=== PATIENT | female | born 1985 | race Caucasian/White ===

== ENCOUNTER 2016-10-24 01:21 | Emergency (ER) | payer OTHER ==
[~2016-10-24 01:21] MED LIST: IBUP-1542 PO
[2016-10-24] MEDS ORDERED: KETOROLAC 30 MG INJ ONE (03:16)
[2016-10-24] MEDS ORDERED: ONDANSETRON (ODT) 4 MG TAB ODT ONE (03:16)
[2016-10-24] MEDS ORDERED: HYDROCODONE/APAP (5/325) TAB ONE (03:17)
--- NOTE | 2016-10-26 19:12 | ERD ---
ER Documentation Chief Complaint Date/Time DATE: 10/26/16 TIME: 19:08 Chief Complaint HPI This patient is a 31-year-old female presenting to the emergency department with complaints of migraine which began today. Symptoms are constant. She does have history of migraines. Tylenol relieved symptoms temporarily. She states she gets approximately one migraine per week which is associated with nausea. She denies urinary symptoms, her last reported menstrual cycle was yesterday. She denies syncope, dizziness, chest pain, visual changes, or other symptoms currently. ROS All systems reviewed and are negative except as per history of present illness. Medications Home Meds Reported Medications Ibuprofen* (Motrin*) 600 Mg Tab, 600 MG PO Q8H Y for PAIN, TAB 07/21/14 Allergies Allergies: Coded Allergies: No Known Allergy (Verified , 07/29/11) PMhx/Soc History of Surgery: Yes () Anesthesia Reaction: No Hx Neurological Disorder: No Hx Respiratory Disorders: No Hx Cardiac Disorders: No Hx Psychiatric Problems: No Hx Miscellaneous Medical Probl: No Hx Alcohol Use: No Hx Substance Use: No Hx Tobacco Use: No Physical Exam Physical Exam Const: Nontoxic, well-appearing female in no acute distress. Head: Atraumatic Eyes: Normal Conjunctiva ENT: Normal External Ears, Nose and Mouth. Neck: Full range of motion..~ No meningismus. Resp: Clear to auscultation bilaterally Cardio: Regular rate and rhythm, no murmurs Abd: Soft, non tender, non distended. Normal bowel sounds Skin: No petechiae or rashes Back: No midline or flank tenderness Ext: No cyanosis, or edema Neur: Awake and alert Psych: Normal Mood and Affect Results 24 hrs Current Medications Medications (Trade) Dose Ordered Sig/Lb Route PRN Reason Start Time Stop Time Status Last Admin Dose Admin Ketorolac Tromethamine (Toradol) 30 mg STK-MED ONCE .ROUTE 10/24/16 03:16 10/24/16 09:02 DC Ondansetron HCl (Zofran Odt) 4 mg STK-MED ONCE ODT 10/24/16 03:16 10/24/16 09:02 DC Acetaminophen/ Hydrocodone Bitart (Calmar (5/325)) 1 tab STK-MED ONCE .ROUTE 10/24/16 03:17 10/24/16 09:05 DC Procedures/MDM 31-year-old female presenting to the emergency department with complaints of migraine which began yesterday. Vital signs reviewed and were within normal limits.Physical examination is unremarkable. Symptoms were easily alleviated in the department with a migraine cocktail consisting of Zofran, Calmar, and Toradol. The patient is feeling much improved after treatment. She is stable for outpatient management with close follow-up with her primary care physician. I have low suspicion for status migrainosus, TIA, CVA, intracranial hemorrhage , or other emergent conditions. The patient is to return immediately for any new or worsening symptoms and she demonstrates good understanding. Departure Diagnosis: Primary Impression: Headache Headache type: unspecified Headache chronicity pattern: acute headache Intractability: not intractable Qualified Code: R51 - Acute nonintractable headache, unspecified headache type Condition: CONCEPCION Decker PA-C Oct 26, 2016 19:12
== END 2016-10-24 03:35 | disposition home or self-care (01) ==
LOC: FTE 01:21
DX: R51 Headache (principal)
CPT/HCPCS: 96372; J1885; Z7502; Z7610